=== PATIENT | female | born 1970 | race Caucasian/White ===

== ENCOUNTER 2018-01-06 09:06 | Emergency (ER) | payer BC ==
[~2018-01-06] VITALS: Ht 156.2 cm; Wt 65.5 kg
[2018-01-06 09:09] VITALS: TEMP 36.7; Ht 156.2 cm; Wt 65.5 kg
[2018-01-06] MEDS ORDERED: DiphenhydrAMINE HCL 50 MG/ML VIAL IV STA (09:38)
[2018-01-06] MEDS ORDERED: SODIUM CHLORIDE 0.9% 1000ML 1,000 ML IV STA (09:38)
[2018-01-06] MEDS ORDERED: METOCLOPRAMIDE HCL INJ 5 MG/ML 2 ML VIAL IV STA (09:38)
[2018-01-06 10:07] LABS: BASO % 0.2 %; BASO ABS # 0.01 K/uL (0-0.2); EOS % 0.4 %; EOS ABS # 0.02 K/uL (0-0.5); HEMATOCRIT 40.4 % (37-47); HEMOGLOBIN 14.1 g/dL (12.0-16.0); IG# 0.01 K/uL (0.00-0.02); LYMPH % 29.8 %; LYMPH ABS # 1.56 K/uL (1.2-3.4); MEAN CELL VOLUME 89.6 fL (80-100); MEAN CORPUSCULAR HEMOGLOBIN 31.3 pg (25-34); MEAN CORPUSCULAR HGB CONC 34.9 g/dl (32-36); MEAN PLATELET VOLUME 9.2 fL (7.4-10.4); MONO % 5.3 %; MONO ABS # 0.28 K/uL (0.11-0.59); NEUT % 64.1 %; NEUT ABS # 3.36 K/uL (1.4-6.5); PLATELET COUNT 262 K/uL (130-400); RED CELL DISTRIBUTION WIDTH CV 12.8 % (11.5-14.5); RED CELL DISTRIBUTION WIDTH SD 41.8 fL (36.4-46.3); WHITE BLOOD COUNT 5.24 K/uL (4.8-10.8)
[2018-01-06 10:24] LABS: CALCIUM 9.2 mg/dl (8.5-10.1); CREATININE 0.7 mg/dl (0.60-1.20); POTASSIUM 3.7 mmol/L (3.5-5.1)
--- NOTE | 2018-01-06 10:52 | DIAGNOSTIC IMAGING REPORT ---
HEAD CT NONCONTRAST CT DOSE: 537.48 mGy.cm HISTORY: Headache. TECHNIQUE: Multiaxial CT images of the head were performed without the use of intravenous contrast. Automated exposure control was utilized for this study. A dose lowering technique was utilized adhering to the principles of ALARA. Comparison: Head CT 10/23/2015. Findings: The paranasal sinuses and mastoid air cells are clear. The calvarium and skull base are intact. Right periventricular encephalomalacia remains unchanged. This is consistent with an old infarct. There is no mass, hematoma, midline shift, acute infarct. The ventricles remain stable in size. Impression: No significant change compared to the prior study. No acute intracranial abnormality. Electronically signed by: Oscar Singer M.D. 01/06/2018 10:51 AM Dictated Date/Time: 01/06/2018 10:42 AM
[2018-01-06 12:00] VITALS: BP 132/78; PULSE 78; O2SAT 97
[2018-01-06] MEDS ORDERED: FRCT/ PO (12:02)
--- NOTE | 2018-01-06 12:45 | Pharmacy Progress Note ---
ED Pharmacist Progress Note Date of Service: Jan 06, 2018. Patient requested that her fioricet prescription be sent to [facility] rather than her original preferred pharmacy of [facility]. I called in the prescription to [facility] (1 tab TID PRN pain, qty 21) and cancelled the original prescription at [facility], as requested by Dr. Alarcon.
--- NOTE | 2018-01-06 18:46 | EMERGENCY ROOM VISIT NOTE ---
History Report prepared by Rolando: Amadeo Fritz Under the Supervision of: Dr. Dale Alarcon M.D. First contact with patient: 09:34 Chief Complaint: NEURO SYMPTOMS Stated Complaint: HEADACHE, SHAKY NAUSEA, REFERRED BY History of Present Illness The patient is a 47 year old female who presents to the Emergency Room stating "I am here for an MRI." Patient is demanding a MRI following a visit with her primary care physician Dr. Sommer Davis. Patient states, "Dr. Davis sent me here for an MRI." When asked what the MRI was to be taken of she responded; "I'm not sure , maybe my head." The patient visited with Dr. Davis today complaining of multiple symptoms. The patient's complaints include a headache that has been on and off for the last few days, blurred vision, numbness of her right upper lip, nausea, and "disorientation". The patient rates the severity of her headache as an 8/10 and notes that she has had it for a couple of days. She notes that she gets migraines frequently. She states taking [id number] medications helps relieve her headache, however "it helps but then comes back a few days later". The patient reports no trauma or fevers. She has no history of MS and denies any chance of . Source of History: patient Onset: Couple of days ago Position: head Symptom Intensity: 8/10 Timing: worsening Associated Symptoms: + nausea, + weakness Review of Systems See HPI for pertinent positives and negatives. A total of ten systems were reviewed and were otherwise negative. Past Medical & Surgical Medical Problems: (1) No significant past medical history Family History Heart disease Social History Smoking Status: Never Smoker Alcohol Use: occasionally Marital Status: single Housing Status: lives with significant other Occupation Status: employed Current/Historical Medications Scheduled Calcium/Vitamin D (Os-Ion 500 Plus D), 1 TAB PO DAILY Ginkgo Biloba (Ginkgo Biloba Extract), 40 MG PO BID Multivitamin (Multivitamin), 1 TAB PO DAILY Psyllium (Metamucil), 1 CAP PO DAILY Scheduled PRN Acetamin/Butalbital/Caffeine (Fioricet), 1 TAB PO TID PRN for Pain Miscellaneous Medications Fish Oil ([place]-3), 2 CAP PO Allergies Coded Allergies: Latex (Verified Allergy, Intermediate, RASH, 01/06/18) Sulfa Antibiotics (Verified Allergy, Intermediate, HIVES, 01/06/18) Physical Exam Vital Signs Date Time Temp Pulse Resp B/P (MAP) Pulse Ox O2 Delivery O2 Flow Rate FiO2 01/06/18 12:00 78 14 132/78 97 Room Air 01/06/18 10:24 85 18 139/82 97 Room Air 01/06/18 09:09 36.7 95 18 169/98 100 Room Air Physical Exam Physical Exam GENERAL: She is oriented to person, place, and time. She appears well- developed and well-nourished. She does not appear distressed. ____ HENT: Exam performed. Head: Normocephalic and atraumatic. Right Ear: External ear normal. No mastoid tenderness. Left Ear: External ear normal. No mastoid tenderness. Mouth/Throat: The oropharynx is clear and moist. No trismus in the jaw. No dental abscesses or uvula swelling. No oropharyngeal exudate or tonsillar abscesses. ____ EYES: Conjunctivae and EOM are normal. Pupils are equal, round, and reactive to light. Right eye exhibits no discharge. Left eye exhibits no discharge. No scleral icterus. ____ Funduscopic exam shows no AV nicking, no papilledema bilaterally. No light sensitivity or photophobia bilaterally. NECK: Normal range of motion. Neck supple. No JVD present. No spinous process tenderness present. No carotid bruit present. No rigidity. No tracheal deviation and normal range of motion present. No Brudzinski's sign and no Kernig 's sign noted. ____ CV: Normal rate, regular rhythm, normal heart sounds and intact distal pulses. There is no peripheral edema. Palpable radial pulses bue. ____ PULM/CHEST: Effort normal and breath sounds normal. No respiratory distress. No stridor. SHe has no wheezes. SHe has no rales. Chest Wall: She exhibits no tenderness. ____ ABD: The abdomen is soft. Bowel sounds are normal. She has no distension. No mass is present. There is no tenderness. There is no rebound, no guarding, no Skinner's sign and no tenderness at McBurney's point. Rovsig negative MUSC/SKEL: Normal range of motion. There is no peripheral edema, tenderness or deformity. LYMPH: No cervical adenopathy. ____ NEURO: She is alert and oriented to person, place, and time. SHe has normal strength. No cranial nerve deficit or sensory deficit. Coordination and gait normal. GCS eye subscore is 4. GCS verbal subscore is 5. GCS motor subscore is 6. Sensation is within normal limits. Cerebellar tests wnl. ____ SKIN: Skin is warm and dry. She is not diaphoretic. ____ PSYCH: She has a normal mood and affect. She behavior is normal. Judgment and thought content normal. ____ Medical Decision & Procedures ER Provider Diagnostic Interpretation: Radiology results as stated below per my review and radiologist interpretation: HEAD CT NONCONTRAST CT DOSE: 537.48 mGy.cm HISTORY: Headache. TECHNIQUE: Multiaxial CT images of the head were performed without the use of intravenous contrast. Automated exposure control was utilized for this study. A dose lowering technique was utilized adhering to the principles of ALARA. Comparison: Head CT 10/23/2015. Findings: The paranasal sinuses and mastoid air cells are clear. The calvarium and skull base are intact. Right periventricular encephalomalacia remains unchanged. This is consistent with an old infarct. There is no mass, hematoma, midline shift, acute infarct. The ventricles remain stable in size. Impression: No significant change compared to the prior study. No acute intracranial abnormality. Electronically signed by: Oscar Singer M.D. 01/06/2018 10:51 AM Dictated Date/Time: 01/06/2018 10:42 AM Laboratory Results 01/06/18 10:00 Red Blood Count 4.51, Mean Corpuscular Volume 89.6, Mean Corpuscular Hemoglobin 31.3, Mean Corpuscular Hemoglobin Concent 34.9, Mean Platelet Volume 9.2, Neutrophils (%) (Auto) 64.1, Lymphocytes (%) (Auto) 29.8, Monocytes (%) (Auto) 5.3, Eosinophils (%) (Auto) 0.4, Basophils (%) (Auto) 0.2, Neutrophils # (Auto) 3.36, Lymphocytes # (Auto) 1.56, Monocytes # (Auto) 0.28, Eosinophils # (Auto) 0.02, Basophils # (Auto) 0.01 01/06/18 10:00 Test 01/06/18 10:00 01/06/18 10:20 White Blood Count 5.24 K/uL (4.8-10.8) Red Blood Count 4.51 M/uL (4.2-5.4) Hemoglobin 14.1 g/dL (12.0-16.0) Hematocrit 40.4 % (37-47) Mean Corpuscular Volume 89.6 fL (80-100) Mean Corpuscular Hemoglobin 31.3 pg (25-34) Mean Corpuscular Hemoglobin Concent 34.9 g/dl (32-36) Platelet Count 262 K/uL (130-400) Mean Platelet Volume 9.2 fL (7.4-10.4) Neutrophils (%) (Auto) 64.1 % Lymphocytes (%) (Auto) 29.8 % Monocytes (%) (Auto) 5.3 % Eosinophils (%) (Auto) 0.4 % Basophils (%) (Auto) 0.2 % Neutrophils # (Auto) 3.36 K/uL (1.4-6.5) Lymphocytes # (Auto) 1.56 K/uL (1.2-3.4) Monocytes # (Auto) 0.28 K/uL (0.11-0.59) Eosinophils # (Auto) 0.02 K/uL (0-0.5) Basophils # (Auto) 0.01 K/uL (0-0.2) RDW Standard Deviation 41.8 fL (36.4-46.3) RDW Coefficient of Variation 12.8 % (11.5-14.5) Immature Granulocyte % (Auto) 0.2 % Immature Granulocyte # (Auto) 0.01 K/uL (0.00-0.02) Anion Gap 2.0 mmol/L (3-11) Est Creatinine Clear Calc Drug Dose 85.3 ml/min Estimated GFR () 117.9 Estimated GFR (Non- 101.7 BUN/Creatinine Ratio 18.4 (10-20) Calcium Level 9.2 mg/dl (8.5-10.1) Urine Color YELLOW Urine Appearance CLEAR (CLEAR) Urine pH 7.5 (4.5-7.5) Urine Specific [place] 1.009 (1.000-1.030) Urine Protein NEG (NEG) Urine Glucose (UA) NEG (NEG) Urine Ketones NEG (NEG) Urine Occult Blood NEG (NEG) Urine Nitrite NEG (NEG) Urine Bilirubin NEG (NEG) Urine Urobilinogen NEG (NEG) Urine Leukocyte Esterase NEG (NEG) Urine Test NEG (NEG) Laboratory results reviewed by me Medications Administered Medications (Trade) Dose Ordered Sig/Agulia Route Start Time Stop Time Status Last Admin Dose Admin Sodium Chloride 1,000 ml @ 999 mls/hr Q1H1M STAT IV 01/06/18 09:38 01/06/18 10:38 DC 01/06/18 10:21 999 MLS/HR Metoclopramide HCl (Reglan Inj) 5 mg NOW STAT IV 01/06/18 09:38 01/06/18 09:44 DC 01/06/18 10:19 5 MG Diphenhydramine HCl (Benadryl Inj) 25 mg NOW STAT IV 01/06/18 09:38 01/06/18 09:44 DC 01/06/18 10:19 25 MG ED Course 0936: The patient was evaluated in room B3B. A complete history and physical exam was performed. 0938: Ordered Benadryl 25 mg IV, Reglan 4 mg IV, Sodium Chloride 1000 mL @ 999 mL/hr IV. 1007: I discussed the case with Dr. Sommer Davis - patient's PCP. She states that she did not send the patient here for a STAT MRI, but rather she was trying to schedule the patient for an outpatient MRI and the patient left her office without telling her while she was trying to obtain insurance approval for the MRI. The patient left her office before Dr. Davis could get blood work or discuss further treatment evaluations with the patient. Dr. Davis stated when she realized the patient left her office without her knowing, she called the patient and instructed that if her headache was severe to go to ED for eval. 1158: I reevaluated the patient at this time. Her vitals are stable. Labs and CT head within normal limits. Repeat physical examination is within normal limits. There is no meningeal signs, no neurologic deficits, patient is ambulating without difficulty, tolerating p.o., there are no neuro deficits. The patient states that after received Reglan, and IV fluids, IV Benadryl her headache has improved. She stated she did not need any further medications for headache. I explained to the patient that I discussed her situation with Dr. Davis who explained that she did NOT send her here for a MRI. CT of her head was within normal limits. I offered to perform a lumbar puncture, she adamantly refused. She states her headache is better. I explained to the patient that a STAT MRI is not indicated at this time given her neuro exam is wnl and I cannot guarantee that the cost of a STAT MRI would be absorbed by her medical insurance company as I do not feel an emergent MRI is warranted given her normal neuro exam and improved headache. She states that she believes the headache is better, and she does not want to pursuit a MRI in the ED. She would rather follow-up with her PCP for an outpatient MRI. Discharge with Fioricet for headache. DISCHARGE - Plan of care discussed with patient and questions answered. The patient was given both verbal and printed discharge instructions. The patient verbalized understanding and ability to comply. The patient is to seek outpatient follow up as noted in the discharge instructions. The patient verbalized understanding and ability to comply. The patient is discharged in stable condition. The patient was instructed to return for worsening symptoms. 1207: I checked the patient's PDMP record. No issues were identified. Plan of care discussed with patient and questions answered. The patient was given both verbal and printed discharge instructions. The patient verbalized understanding and ability to comply. The patient is to seek outpatient follow up as noted in the discharge instructions. The patient verbalized understanding and ability to comply. The patient is discharged in stable condition. The patient was instructed to return for worsening symptoms. Medical Decision 1007: I discussed the case with Dr. Sommer Davis - patient's PCP. She states that she did not send the patient here for a STAT MRI, but rather she was trying to schedule the patient for an outpatient MRI and the patient left her office without telling her while she was trying to obtain insurance approval for the MRI. The patient left her office before Dr. Davis could get blood work or discuss further treatment evaluations with the patient. Dr. Davis stated when she realized the patient left her office without her knowing, she called the patient and instructed that if her headache was severe to go to ED for eval. 1158: I reevaluated the patient at this time. Her vitals are stable. Labs and CT head within normal limits. Repeat physical examination is within normal limits. There is no meningeal signs, no neurologic deficits, patient is ambulating without difficulty, tolerating p.o., there are no neuro deficits. The patient states that after received Reglan, and IV fluids, IV Benadryl her headache has improved. She stated she did not need any further medications for headache. I explained to the patient that I discussed her situation with Dr. Davis who explained that she did NOT send her here for a MRI. CT of her head was within normal limits. I offered to perform a lumbar puncture, she adamantly refused. She states her headache is better. I explained to the patient that a STAT MRI is not indicated at this time given her neuro exam is wnl and I cannot guarantee that the cost of a STAT MRI would be absorbed by her medical insurance company as I do not feel an emergent MRI is warranted given her normal neuro exam and improved headache. She states that she believes the headache is better, and she does not want to pursuit a MRI in the ED. She would rather follow-up with her PCP for an outpatient MRI. Discharge with Fioricet for headache. DISCHARGE - Plan of care discussed with patient and questions answered. The patient was given both verbal and printed discharge instructions. The patient verbalized understanding and ability to comply. The patient is to seek outpatient follow up as noted in the discharge instructions. The patient verbalized understanding and ability to comply. The patient is discharged in stable condition. The patient was instructed to return for worsening symptoms. 1207: I checked the patient's PDMP record. No issues were identified. Plan of care discussed with patient and questions answered. The patient was given both verbal and printed discharge instructions. The patient verbalized understanding and ability to comply. The patient is to seek outpatient follow up as noted in the discharge instructions. The patient verbalized understanding and ability to comply. The patient is discharged in stable condition. The patient was instructed to return for worsening symptoms. [place] Drug Monitoring Program Search Results: patient reviewed within database, no issues identified Blood Pressure Screening Patient's blood pressure: Elevated blood pressure Blood pressure disposition: Elevated BP felt to be situational Consults Time Called: 1002 Consulting Physician: Dr. Sommer Davis - patient's PCP Returned Call: 1007 I discussed the case with Dr. Sommer Davis - patient's PCP. She states that she did not send the patient here for a STAT MRI, but rather she was trying to schedule the patient for an outpatient MRI and the patient left her office without telling her while she was trying to obtain insurance approval for the MRI. The patient left her office before Dr. Davis could get blood work or discuss further treatment evaluations with the patient. Dr. Davis stated when she realized the patient left her office without her knowing, she called the patient and instructed that if her headache was severe to go to ED for eval. Impression Primary Impression: Headache Scribe Attestation The scribe's documentation has been prepared under my direction and personally reviewed by me in its entirety. I confirm that the note above accurately reflects all work, treatment, procedures, and medical decision making performed by me. The chart was completed utilizing [employer] Speech voice recognition software. Grammatical errors, random word insertions, pronoun errors, and incomplete sentences are an occasional consequence of this system due to software limitations, ambient noise, and hardware issues. Any formal questions or concerns about the content, text, or information contained within the body of this dictation should be directly addressed to the physician for clarification. Departure Information Dispostion Home / Self-Care Prescriptions Acetamin/Butalbital/Caffeine (FIORICET) 1 Ea Tab 1 TAB PO TID Y for Pain, #21 TAB Prov: Dale Alarcon M.D. 01/06/18 Referrals Sommer Davis M.D. (PCP) Forms HOME CARE DOCUMENTATION FORM, IMPORTANT VISIT INFORMATION, WORK / SCHOOL INSTRUCTIONS Patient Instructions My [facility] Additional Instructions Return to the emergency department if you develop changes in her vision, fever greater than 100.4, neck pain, worsening headache, vomiting, vomiting blood. Problem Qualifiers Primary Impression: Headache Headache type: unspecified Headache chronicity pattern: unspecified pattern Intractability: not intractable Qualified Codes: R51 - Headache
[2018-01-11] MEDS ORDERED: PSYL0.524 PO (09:38)
[2018-01-11] MEDS ORDERED: CALC500C70 PO (09:38)
== END 2018-01-06 12:20 | disposition home or self-care (01) ==
LOC: C.EDB 09:08
DX: R51 Headache (principal); Z91.040 Latex allergy status; Z88.2 Allergy status to sulfonamides

== ENCOUNTER 2018-01-11 10:08 | Emergency (ER) | payer BC ==
[~2018-01-11] VITALS: Ht 154.9 cm; Wt 66.7 kg
[~2018-01-11 10:08] MED LIST: CALC500C70 PO; FRCT/ PO; PSYL0.524 PO
[2018-01-11 10:23] VITALS: TEMP 36.7; Ht 154.9 cm; Wt 66.7 kg
[2018-01-11] MEDS ORDERED: FRCT/ PO (11:03)
[2018-01-11] MEDS ORDERED: GINK40CA3 PO (11:26)
[2018-01-11] MEDS ORDERED: OMEG10007 PO (11:26)
[2018-01-11] MEDS ORDERED: MULT-506 PO (11:26)
[2018-01-11] MEDS ORDERED: SODIUM CHLORIDE 0.9% 1000ML 1,000 ML IV STA (11:28)
[2018-01-11] MEDS ORDERED: KETOROLAC TROMETHAMINE 30 MG/ML VIAL IV STA (11:28)
[2018-01-11 11:47] LABS: BASO % 0.2 %; BASO ABS # 0.01 K/uL (0-0.2); EOS % 0.6 %; EOS ABS # 0.03 K/uL (0-0.5); IG# 0.01 K/uL (0.00-0.02); LYMPH % 28.4 %; LYMPH ABS # 1.53 K/uL (1.2-3.4); MEAN CELL VOLUME 89.1 fL (80-100); MEAN CORPUSCULAR HEMOGLOBIN 31.2 pg (25-34); MEAN PLATELET VOLUME 9.3 fL (7.4-10.4); MONO % 6.3 %; MONO ABS # 0.34 K/uL (0.11-0.59); NEUT % 64.3 %; NEUT ABS # 3.47 K/uL (1.4-6.5); PLATELET COUNT 222 K/uL (130-400); RED CELL DISTRIBUTION WIDTH CV 12.8 % (11.5-14.5); RED CELL DISTRIBUTION WIDTH SD 41.3 fL (36.4-46.3); WHITE BLOOD COUNT 5.39 K/uL (4.8-10.8)
[2018-01-11 12:04] LABS: ALBUMIN 4.3 gm/dl (3.4-5.0); ALT/SGPT 18 U/L (12-78); AST/SGOT 16 U/L (15-37); BLOOD UREA NITROGEN 14 mg/dl (7-18); CARBON DIOXIDE 28 mmol/L (21-32); CREATININE 0.67 mg/dl (0.60-1.20); GLUCOSE 92 mg/dl (70-99); LIPASE 175 U/L (73-393); POTASSIUM 3.8 mmol/L (3.5-5.1); SODIUM 138 mmol/L (136-145)
[2018-01-11 12:07] LABS: ALKALINE PHOSPHATASE 50 U/L (45-117); TOTAL PROTEIN 7.8 gm/dl (6.4-8.2)
--- NOTE | 2018-01-11 12:29 | DIAGNOSTIC IMAGING REPORT ---
MRA HEAD WITHOUT CONTRAST HISTORY: Mental status change. Headache. eval for cornejo TECHNIQUE: 3-D [id number] MRA of the brain was performed without contrast. COMPARISON STUDY: None. FINDINGS: Visualized intracranial internal carotid arteries, distal vertebral arteries, and basilar artery are widely patent. There is no significant stenosis, occlusion, or aneurysm seen within the bilateral ACAs, MCAs, or adjunct faculty for medical terminology. IMPRESSION: No significant stenosis, occlusion, or aneurysm within the [place]. The above report was generated using voice recognition software. It may contain grammatical, syntax or spelling errors. Electronically signed by: Emir Gomez M.D. 01/11/2018 12:28 PM Dictated Date/Time: 01/11/2018 12:27 PM
--- NOTE | 2018-01-11 13:01 | DIAGNOSTIC IMAGING REPORT ---
BRAIN COMBO CLINICAL HISTORY: headache for 2 weeeks, intermittant visual change COMPARISON STUDY: CT 01/06/2018. FINDINGS: diffusion-weighted images are considered negative for an acute ischemic event. Coronal FLAIR images demonstrate evidence for an old right periventricular infarct which has been described previously. There are multiple foci of increased signal within the periventricular deep white matter regions. This appearance is suggestive of a demyelinating disorder. No significant postcontrast enhancement. No evidence for midline shift. . IMPRESSION: 1. Multiple foci of increased signal within the periventricular and deep white matter regions.. 2. This is suggestive of a demyelinating disorder. 3. No abnormal postcontrast enhancement 4. 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 The above report was generated using voice recognition software. It may contain grammatical, syntax or spelling errors. Electronically signed by: Emir Gomez M.D. 01/11/2018 1:00 PM Dictated Date/Time: 01/11/2018 12:56 PM
--- NOTE | 2018-01-11 14:07 | EMERGENCY ROOM VISIT NOTE ---
History Report prepared by Rolando: Eduardo Machado Under the Supervision of: Dr. Aidan Ochoa M.D. First contact with patient: 11:18 Chief Complaint: HEADACHE Stated Complaint: SPOTTY VISION,HEADACHE History of Present Illness The patient is a 47 year old female who presents to the Emergency Room with complaints of waxing and waning headache beginning two weeks ago. She localizes the pain to across her forehead into either tenriism. The patient states that she occasionally has episodes of increased pain along with dizziness, and spotted vision. Her pain increases to a 10/10 at worst. She was seen in the ED last week for her symptoms. She had a head CT at this time which was negative. The patient also complains of upper central neck pain. She has a history of migraines, but states that her pain feels very different. She states that her migraines are typically worse in intensity, but shorter in time. The patient had a flu shot this year. Her headache is improved (but not resolved) with Excedrin Migraine. She notes that she had a concussion a few years ago and has had headaches ever since. She denies chest pain. The patient states that she had an episode of upper lip numbness and bilateral leg weakness one day last week as well. Source of History: patient Onset: Two weeks ago Position: head Symptom Intensity: 10/10 Quality: ache Timing: waxes/wanes Modifying Factors (Relieving): other (Excedrin Migraine) Associated Symptoms: + neck pain (upper central), No chest pain Note: The patient also complains of intermittent dizziness and spotted vision. Review of Systems See HPI for pertinent positives & negatives. A total of 10 systems reviewed and were otherwise negative. Past Medical & Surgical Medical Problems: (1) No significant past medical history Old medical records were reviewed. Nurse's notes were reviewed and I agree with. Family History Heart disease Social History Smoking Status: Never Smoker Alcohol Use: occasionally Marital Status: single Housing Status: lives with significant other Occupation Status: employed Current/Historical Medications Scheduled Calcium/Vitamin D (Os-Ion 500 Plus D), 1 TAB PO DAILY Ginkgo Biloba (Ginkgo Biloba Extract), 40 MG PO BID Multivitamin (Multivitamin), 1 TAB PO DAILY Psyllium (Metamucil), 1 CAP PO DAILY Scheduled PRN Acetamin/Butalbital/Caffeine (Fioricet), 1 TAB PO TID PRN for Headache Miscellaneous Medications Fish Oil ([place]-3), 2 CAP PO Allergies Coded Allergies: Latex (Verified Allergy, Intermediate, RASH, 01/11/18) Sulfa Antibiotics (Verified Allergy, Intermediate, HIVES, 01/11/18) Physical Exam Vital Signs Date Time Temp Pulse Resp B/P (MAP) Pulse Ox O2 Delivery O2 Flow Rate FiO2 01/11/18 14:17 72 16 125/75 98 01/11/18 13:56 75 01/11/18 13:30 79 16 130/83 99 01/11/18 13:00 74 16 140/79 99 Room Air 01/11/18 11:01 73 16 145/91 99 Room Air 01/11/18 10:53 81 01/11/18 10:52 79 16 151/88 99 Room Air 01/11/18 10:23 36.7 85 18 151/91 99 Room Air Physical Exam General: Non-ill appearing middle-aged female in no acute distress. Laughing and joking with co-worker. HEENT: Normal cephalic atraumatic. Pupils are equal round and reactive to light. Extraocular movements are intact. Oropharynx is pink with moist mucous membranes. No swelling of the mouth lips or tongue. Neck: Supple with a midline trachea. No meningeal signs or stiffness, no JVD or bruits. No Stridor. Chest: Clear to auscultation bilaterally. No wheezes or rhonchi. No increased work of breathing. Heart: regular rate and rhythm. Abdomen: Soft nontender, nondistended without rebound guarding or rigidity. Extremities: No cyanosis clubbing or edema. No calf tenderness or assymetry Spine/Back. Non tender to palpation. No CVA tenderness Skin: Good turgor without rashes. Neurologic exam: Cranial nerves two through 12 are intact. Motor and sensation are intact and symmetrical throughout. Medical Decision & Procedures ER Provider Diagnostic Interpretation: Radiology results as stated below per my review and radiologist interpretation: BRAIN COMBO FINDINGS: diffusion-weighted images are considered negative for an acute ischemic event. Coronal FLAIR images demonstrate evidence for an old right periventricular infarct which has been described previously. There are multiple foci of increased signal within the periventricular deep white matter regions. This appearance is suggestive of a demyelinating disorder. No significant postcontrast enhancement. No evidence for midline shift. IMPRESSION: 1. Multiple foci of increased signal within the periventricular and deep white matter regions.. 2. This is suggestive of a demyelinating disorder. 3. No abnormal postcontrast enhancement 4. 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 The above report was generated using voice recognition software. It may contain grammatical, syntax or spelling errors. Electronically signed by: Emir Gomez M.D. 01/11/2018 1:00 PM MRA HEAD WITHOUT CONTRAST FINDINGS: Visualized intracranial internal carotid arteries, distal vertebral arteries, and basilar artery are widely patent. There is no significant stenosis, occlusion, or aneurysm seen within the bilateral ACAs, MCAs, or fashion model. IMPRESSION: No significant stenosis, occlusion, or aneurysm within the [place]. The above report was generated using voice recognition software. It may contain grammatical, syntax or spelling errors. Electronically signed by: Emir Gomez M.D. 01/11/2018 12:28 PM Laboratory Results 01/11/18 11:35 Red Blood Count 4.49, Mean Corpuscular Volume 89.1, Mean Corpuscular Hemoglobin 31.2, Mean Corpuscular Hemoglobin Concent 35.0, Mean Platelet Volume 9.3, Neutrophils (%) (Auto) 64.3, Lymphocytes (%) (Auto) 28.4, Monocytes (%) (Auto) 6.3, Eosinophils (%) (Auto) 0.6, Basophils (%) (Auto) 0.2, Neutrophils # (Auto) 3.47, Lymphocytes # (Auto) 1.53, Monocytes # (Auto) 0.34, Eosinophils # (Auto) 0.03, Basophils # (Auto) 0.01 01/11/18 11:35 Test 01/11/18 11:35 01/11/18 11:54 White Blood Count 5.39 K/uL (4.8-10.8) Red Blood Count 4.49 M/uL (4.2-5.4) Hemoglobin 14.0 g/dL (12.0-16.0) Hematocrit 40.0 % (37-47) Mean Corpuscular Volume 89.1 fL (80-100) Mean Corpuscular Hemoglobin 31.2 pg (25-34) Mean Corpuscular Hemoglobin Concent 35.0 g/dl (32-36) Platelet Count 222 K/uL (130-400) Mean Platelet Volume 9.3 fL (7.4-10.4) Neutrophils (%) (Auto) 64.3 % Lymphocytes (%) (Auto) 28.4 % Monocytes (%) (Auto) 6.3 % Eosinophils (%) (Auto) 0.6 % Basophils (%) (Auto) 0.2 % Neutrophils # (Auto) 3.47 K/uL (1.4-6.5) Lymphocytes # (Auto) 1.53 K/uL (1.2-3.4) Monocytes # (Auto) 0.34 K/uL (0.11-0.59) Eosinophils # (Auto) 0.03 K/uL (0-0.5) Basophils # (Auto) 0.01 K/uL (0-0.2) RDW Standard Deviation 41.3 fL (36.4-46.3) RDW Coefficient of Variation 12.8 % (11.5-14.5) Immature Granulocyte % (Auto) 0.2 % Immature Granulocyte # (Auto) 0.01 K/uL (0.00-0.02) Anion Gap 6.0 mmol/L (3-11) Est Creatinine Clear Calc Drug Dose 88.7 ml/min Estimated GFR () 119.6 Estimated GFR (Non- 103.2 BUN/Creatinine Ratio 21.4 (10-20) Calcium Level 9.0 mg/dl (8.5-10.1) Total Bilirubin 0.3 mg/dl (0.2-1) Direct Bilirubin < 0.1 mg/dl (0-0.2) Aspartate Amino Transf (AST/SGOT) 16 U/L (15-37) Alanine Aminotransferase (ALT/SGPT) 18 U/L (12-78) Alkaline Phosphatase 50 U/L (45-117) Total Protein 7.8 gm/dl (6.4-8.2) Albumin 4.3 gm/dl (3.4-5.0) Lipase 175 U/L (73-393) Human Chorionic Gonadotropin, Qual NEG (NEG) Laboratory studies as stated above per my review. Medications Administered Medications (Trade) Dose Ordered Sig/[place] Route Start Time Stop Time Status Last Admin Dose Admin Sodium Chloride 1,000 ml @ 999 mls/hr Q1H1M STAT IV 01/11/18 11:28 4/16/18 12:28 DC 01/11/18 12:57 999 MLS/HR Ketorolac Tromethamine (Toradol Inj) 30 mg NOW STAT IV 01/11/18 11:28 01/11/18 11:31 DC 01/11/18 12:57 30 MG ED Course 1119: Past medical records reviewed. The patient was evaluated in room C4, and a complete history and physical examination were performed. 1128: Ordered Toradol Inj 30 mg IV, Sodium Chloride 1000 ml @ 999 mls/hr IV. 1402: Upon reevaluation, the patient is resting comfortably. I discussed the results and treatment plan with her. She verbalized agreement of the treatment plan. The patient was discharged home. Medical Decision Differentials include, but are not limited to; migraine, tension headache, ICH, infection, aneurysm, mass and CVA. This patient comes in as described above. she has been having ongoing headaches and is scheduled have an MRI it got worse today. it has been persistent for couple weeks where she gets spikes were gets worse and occasionally she will have trouble with blurry vision as well although none at present she had it this morning. She looks well and on exam appears in no distress. She has a normal neurologic exam. IV access established multiple blood testing was obtained. She has no white count or fever to suggest infection. She has nothing to suggest meningitis. she has no acute electrolyte or metabolic abnormalities. I did both the MRI and MRA of her brain and she has no mass or aneurysm. She does have some demyelinating spots in her brain and could have a demyelinating disorder. She has no neurologic symptoms to suggest MS at this point however. I do think she will need to follow-up with neurology. I did talk to her doctor Dr. Mejia who is going to make a neurologic referral. I do not think this is likely causing her headaches however but she will need further evaluation and can further discuss headaches with the neurologist as well. She can use ibuprofen for pain and return if: increasing pain, worsening of symptoms, any new problems or concerns. Medication Reconcilliation Current Medication List: was personally reviewed by me Blood Pressure Screening Patient's blood pressure: Elevated blood pressure Blood pressure disposition: Elevated BP felt to be situational Consults Time Called: [id number] Consulting Physician: Dr. Mejia - Primary Care Returned Call: [phone] Discussed the patient's case. The patient will follow up in the office. Impression Primary Impression: Headache Additional Impression: Demyelinating changes in brain Scribe Attestation The scribe's documentation has been prepared under my direction and personally reviewed by me in its entirety. I confirm that the note above accurately reflects all work, treatment, procedures, and medical decision making performed by me. Departure Information Dispostion Home / Self-Care Referrals Sommer Davis M.D. (PCP) Forms HOME CARE DOCUMENTATION FORM, IMPORTANT VISIT INFORMATION Patient Instructions My [facility] [address] Additional Instructions Rest. Drink plenty of fluids. May use ibuprofen 400 mg every 6 hours as needed for pain Return if: Increasing pain, worsening of symptoms, fever or chills, any new problems or concerns. Follow-up with your doctor this week for recheck Problem Qualifiers
[2018-01-11 14:17] VITALS: BP 125/75; PULSE 72; O2SAT 98
== END 2018-01-11 14:05 | disposition home or self-care (01) ==
LOC: C.EDB 10:09 → C.EDC 14:05
DX: R51 Headache (principal); G37.8 Other specified demyelinating diseases of central nervous system; H53.8 Other visual disturbances; M54.2 Cervicalgia; Z91.040 Latex allergy status